=== PATIENT | female | born 1935 | race Caucasian/White ===

== ENCOUNTER → 2016-08-13 | Outpatient (CLI) | payer MEDICARE ==
[2016-08-13 10:41] LABS: HEMOGLOBIN 14.4 gm/dl (12.3-15.3); RED BLOOD COUNT 4.13 M/UL (4.00-5.10); WHITE BLOOD COUNT 4.4 K/UL (4.5-11.0)
== END ==
LOC: CT 08:00 → LAB 10:09
PROVIDERS: Internal Medicine Hematology & Oncology
DX: C81.90 Hodgkin lymphoma, unspecified, unspecified site (principal)
CPT/HCPCS: 36415; 70491; 71260; 80053; 83615; 85025; J7050; Q9962

== ENCOUNTER → 2016-09-09 | Outpatient (CLI) | payer MEDICARE | LOC: EMI 17:57 | DX: G30.9 Alzheimer's disease, unspecified (principal); J32.0 Chronic maxillary sinusitis | CPT/HCPCS: 70551 ==